=== PATIENT | male | born 1945 | race Caucasian/White ===

== ENCOUNTER 2016-11-16 14:45 | Outpatient (RCR) | payer OTHER | END 2016-11-26 | disposition home or self-care (01) | LOC: PTY 14:45 | DX: M25.511 Pain in right shoulder (principal); G89.29 Other chronic pain ==

== ENCOUNTER 2016-12-07 09:08 | Outpatient (RCR) | payer OTHER | END 2016-12-26 | disposition home or self-care (01) | LOC: PTY 09:08 | DX: M25.511 Pain in right shoulder (principal); G89.29 Other chronic pain ==

== ENCOUNTER 2016-12-27 13:00 | Outpatient (RCR) | payer OTHER | END 2017-01-26 | disposition home or self-care (01) | LOC: PTY 13:00 | DX: M25.511 Pain in right shoulder (principal); G89.29 Other chronic pain ==

== ENCOUNTER 2017-02-11 09:00 | Outpatient (RCR) | payer OTHER | END 2017-02-25 | disposition home or self-care (01) | LOC: PTY 09:00 | DX: M12.88 Other specific arthropathies, not elsewhere classified, other specified site (principal); M54.16 Radiculopathy, lumbar region | CPT/HCPCS: 97110; 97140; 97162; G0283 ==

== ENCOUNTER 2017-03-03 15:45 | Outpatient (RCR) | payer OTHER | END 2017-03-28 | disposition home or self-care (01) | LOC: PTY 15:45 | DX: M12.88 Other specific arthropathies, not elsewhere classified, other specified site (principal); M54.16 Radiculopathy, lumbar region | CPT/HCPCS: 97110; 97140; G0283 ==

== ENCOUNTER 2017-04-19 08:14 | Outpatient (RCR) | payer OTHER | END 2017-04-28 | disposition home or self-care (01) | LOC: PTY 08:14 | DX: M12.88 Other specific arthropathies, not elsewhere classified, other specified site (principal); M54.16 Radiculopathy, lumbar region | CPT/HCPCS: 97110; 97140; G0283 ==

== ENCOUNTER 2017-06-27 10:00 | Outpatient (RCR) | payer OTHER | END 2017-06-28 | disposition home or self-care (01) | LOC: PTY 10:00 | DX: M12.88 Other specific arthropathies, not elsewhere classified, other specified site (principal); M54.16 Radiculopathy, lumbar region; M75.121 Complete rotator cuff tear or rupture of right shoulder, not specified as traumatic; S46.211A Strain of muscle, fascia and tendon of other parts of biceps, right arm, initial encounter ==

== ENCOUNTER 2017-07-22 10:30 | Outpatient (RCR) | payer OTHER | END 2017-07-28 | disposition home or self-care (01) | LOC: PTY 10:30 | DX: M12.88 Other specific arthropathies, not elsewhere classified, other specified site (principal); M54.16 Radiculopathy, lumbar region; M75.121 Complete rotator cuff tear or rupture of right shoulder, not specified as traumatic; S46.211A Strain of muscle, fascia and tendon of other parts of biceps, right arm, initial encounter; X58.XXXA Exposure to other specified factors, initial encounter; Y92.9 Unspecified place or not applicable | CPT/HCPCS: 97110; 97140; G0283 ==

== ENCOUNTER 2017-08-16 09:15 | Outpatient (RCR) | payer OTHER | END 2017-08-28 | disposition home or self-care (01) | LOC: PTY 09:15 | DX: M12.88 Other specific arthropathies, not elsewhere classified, other specified site (principal); M54.5 Low back pain | CPT/HCPCS: 97110; 97140; G0283 ==

== ENCOUNTER 2017-09-08 09:15 | Outpatient (RCR) | payer OTHER | END 2017-09-28 | disposition home or self-care (01) | LOC: PTY 09:15 | DX: M75.121 Complete rotator cuff tear or rupture of right shoulder, not specified as traumatic (principal); S46.211D Strain of muscle, fascia and tendon of other parts of biceps, right arm, subsequent encounter | CPT/HCPCS: 97110; 97140; G0283 ==

== ENCOUNTER 2017-10-04 10:00 | Outpatient (RCR) | payer OTHER | END 2017-10-26 | disposition home or self-care (01) | LOC: PTY 10:00 | DX: M75.121 Complete rotator cuff tear or rupture of right shoulder, not specified as traumatic (principal); S46.211D Strain of muscle, fascia and tendon of other parts of biceps, right arm, subsequent encounter | CPT/HCPCS: 97110; 97140; G0283 ==

== ENCOUNTER 2017-10-28 12:59 | Outpatient (RCR) | payer OTHER | END 2017-11-26 | disposition home or self-care (01) | LOC: PTY 12:59 | DX: M75.121 Complete rotator cuff tear or rupture of right shoulder, not specified as traumatic (principal); S46.211D Strain of muscle, fascia and tendon of other parts of biceps, right arm, subsequent encounter; X58.XXXD Exposure to other specified factors, subsequent encounter ==

== ENCOUNTER 2017-12-08 10:00 | Outpatient (RCR) | payer OTHER | END 2017-12-26 | disposition home or self-care (01) | LOC: PTY 10:00 | DX: M75.121 Complete rotator cuff tear or rupture of right shoulder, not specified as traumatic (principal); S46.211D Strain of muscle, fascia and tendon of other parts of biceps, right arm, subsequent encounter | CPT/HCPCS: 97032; 97110; 97140; G0283 ==